=== PATIENT | male | born 1995 | race Caucasian/White ===

== ENCOUNTER 2023-12-22 18:26 | Emergency (ER) | payer OTHER, SELFPAY ==
[2023-12-22 18:33] VITALS: BP 159/93; PULSE 129; RESP 16; TEMP 36.5; O2SAT 98
--- NOTE | 2023-12-22 18:43 | ED.URI ---
HPI - URI/Sore Throat General Chief Complaint: Upper Respiratory Infection Stated Complaint: flu symptoms Time Seen by Provider: 12/22/23 18:37 Source: patient, family, RN notes reviewed and old records reviewed Mode of arrival: ambulatory Limitations: no limitations History of Present Illness HPI Narrative: 28-year-old male who presents to [facility] with complaints of cough and congestion since yesterday with no fever no sore throat reported. Patient admits he has not taken any OTC medication for his symptoms.Patient reports fatigue and some body aches. Reports that girlfriend has been ill. Patient reports no shortness of breath, no nausea vomiting or diarrhea. MD elicited complaint: fever, cough, rhinorrhea, nasal congestion and other (achy) Onset (ago): day(s) (day 2 of symptoms) Severity: mild Able to tolerate fluids by mouth: Yes Treatments prior to arrival: other (cough drops) Related Data Allergies Allergy/AdvReac Type Severity Reaction Status Date / Time amoxicillin [From Augmentin] Allergy Rash Verified 12/22/23 18:41 clavulanic acid Allergy Rash Verified 12/22/23 18:41 [From Augmentin] Review of Systems Review of Systems: CONSTITUTIONAL: Reports malaise, no chills, sweats, or fever. EYES: Denies visual changes, redness, or discharge. ENT: Reports rhinorrhea, congestion, no sinus pain, no otalgia and no sore throat. CARDIOVASCULAR: Denies chest pain, palpitations, or edema. RESPIRATORY: Reports cough.? Denies dyspnea. GASTROINTESTINAL: Denies abdominal pain, nausea, vomiting, diarrhea SKIN: Denies rash or itching. MUSCULOSKELETAL:Reports myalgia. NEUROLOGIC: Denies headache. All systems reviewed & are unremarkable except as noted in HPI and below PMFSH Social History Social History (Updated 12/24/23 @ 20:09 by Zee Josue NP) Smoking status: Never smoker Alcohol intake: current Alcohol use details: social Gender identity (if verbalized by the patient): Male Comments At time of signature, agree with nursing past medical, surgical, social and family history. There is no relevant family history pertinent to the presenting complaint Exam Narrative: GENERAL: Well-appearing, well-nourished, and in no acute distress. HEAD: Normocephalic EYES: PERRLA, conjunctivae clear ENT: Nares clear, turbinates edematous and erythematous, clear discharge. Mucous membranes moist. TM pearly tellez with dull light reflex bilaterally; no tragal tenderness. Oropharynx erythematous without lesions. Tonsils not enlarged and without exudate, no drooling, no hoarseness, no trismus, uvula midline.post nasal discharge NECK: Supple. No lymphadenopathy CHEST: Clear to auscultation, breath sounds equal. No wheezing, rhonchi, rales, or stridor. No respiratory distress, speaks in full sentences.cough,SAO2 98% on room air HEART: Regular rate and rhythm. No murmur heard. SKIN: Warm, dry, no rash. NEURO: Alert and oriented x3. PSYCH: Normal mood and affect Course Course Emergency Course: Patient is aware of diagnosis, understands and agrees to treatment plan.? Anticipatory guidance given.? Patient agrees to follow-up as directed and is aware of reasons to seek care at the emergency department. Portions of this record may have been created with voice recognition software Level of Care: Express Care Visit Vital Signs Vital signs: Vital Signs Temperature 36.5 C 12/22/23 18:33 Pulse Rate 129 H 12/22/23 18:33 Respiratory Rate 16 12/22/23 18:33 Blood Pressure 159/93 H 12/22/23 18:33 Pulse Oximetry 98 12/22/23 18:33 Oxygen Delivery Room Air 12/22/23 18:33 Temperature 36.5 C 12/22/23 18:33 Pulse Rate 129 H 12/22/23 18:33 Respiratory Rate 16 12/22/23 18:33 Blood Pressure 159/93 H 12/22/23 18:33 Pulse Oximetry 98 12/22/23 18:33 Oxygen Delivery Room Air 12/22/23 18:33 Reviewed MDM - URI/Sore Throat MDM Narrative Medical decision making clem
== END 2023-12-22 19:13 | disposition home or self-care (01) ==
PROVIDERS: Emergency Provider Registered Nurse
DX: J10.1 Influenza due to other identified influenza virus with other respiratory manifestations (principal); Z20.822 Contact with and (suspected) exposure to COVID-19
CPT/HCPCS: 87081; 87426; 87804; 87880; 99213; G0463